=== PATIENT | female | born 1930 | race Caucasian/White ===

== ENCOUNTER → 2018-11-18 19:21 | Outpatient (CLI) | payer MEDICARE | END | disposition home or self-care (01) | LOC: D.MAMMO 11-09 10:30 | DX: N64.4 Mastodynia (principal) ==

== ENCOUNTER → 2019-05-14 08:38 | Outpatient (CLI) | payer MEDICARE, OTHER | END | disposition home or self-care (01) | LOC: D.US 08:38 | PROVIDERS: ATTEND Family Medicine | DX: N64.4 Mastodynia (principal) ==

== ENCOUNTER 2019-07-26 22:43 | Inpatient (IN) | payer MEDICARE, OTHER ==
[~2019-07-26] VITALS: Ht 162.6 cm; Wt 57.2 kg
[2019-07-26] MEDS ORDERED: SYNTHROID25 MCG PO (22:51)
[2019-07-26] MEDS ORDERED: ASPIRIN EC81 M1 PO (22:51)
[2019-07-26] MEDS ORDERED: MERIBIN5 MG PO (22:52)
[2019-07-26] MEDS ORDERED: AVIDOXY100 MG PO (22:52)
[2019-07-26] MEDS ORDERED: FUROSEMIDE20 MG PO (22:53)
[2019-07-26] MEDS ORDERED: LIPITOR20 MG PO (22:53)
[2019-07-26] MEDS ORDERED: LEVAQUIN750 MG PO (22:53)
[2019-07-26] MEDS ORDERED: SEROQUEL25 MG PO (22:54)
[2019-07-26] MEDS ORDERED: DONEPEZIL HCL5 MG PO (22:54)
[2019-07-26] MEDS ORDERED: ALENDRONAT70 MG/75 M PO (22:55)
--- NOTE | 2019-07-26 23:50 | NUR ---
ASSISTED PT WITH AMBULATING TO RESTROOM. URINE SENT TO LAB.
[2019-07-26 23:58] LABS: ALBUMIN 2.6 g/dL (3.4-5.0); ALKALINE PHOSPHATASE 114 U/L (46-116); ALT (SGPT) 32 U/L (10-68); AMYLASE - SERUM 23 U/L (25-115); BILIRUBIN - TOTAL 0.97 mg/dL (0.2-1.3); CALC OSMOLALITY 273 mosm/kg (275-300); CALCIUM 8.8 mg/dL (8.5-10.1); CHLORIDE - SERUM 97 mmol/L (98-107); CREATININE - SERUM 2.1 mg/dL (0.6-1.3); GLUCOSE 147 mg/dL (74-106); LIPASE 104 U/L (73-393); POTASSIUM - SERUM 4.2 mmol/L (3.5-5.1); PROTEIN - SERUM 6.5 g/dL (6.4-8.2); SODIUM 131 mmol/L (136-145); TROPONIN-I < 0.017 ng/mL (0.000-0.060); UREA NITROGEN 35 mg/dL (7-18); eGFR NON AFRICAN AMERICAN 23 mL/min (90-120)
[2019-07-27] VITALS (7 sets, daily range): BP systolic 105–138; BP diastolic 48–62; Ht 162.6 cm; Wt 57.2 kg
[2019-07-27 00:15] LABS: BASOPHILS 0.2 % (0-2); EOSINOPHILS 0.3 % (0-7); HEMATOCRIT 28.8 % (36.0-48.0); HEMOGLOBIN 10.2 g/dL (12-16); IMMATURE GRANULOCYTES 0.2 % (0-5); LYMPHOCYTES 5.3 % (15-50); MCH 33.3 pg (26.0-34.0); MCHC 35.4 g/dL (31.0-37.0); MCV 94.1 fL (80.0-100.0); MEAN PLATELET VOLUME 10.3 fL (7.4-10.4); MONOCYTES 9.5 % (2-11); NEUTROPHILS 84.5 % (40-80); PLATELET COUNT 153 10x3/uL (130-400); RBC 3.06 10x6/uL (4.00-5.40); WBC 10.1 10x3/uL (4.8-10.8)
[2019-07-27 00:24] LABS: APPEARANCE HAZY (CLEAR); BILIRUBIN NEGATIVE (NEGATIVE); COLOR YELLOW (YELLOW); GLUCOSE NEGATIVE (NEGATIVE); KETONE NEGATIVE (NEGATIVE); NITRITE NEGATIVE (NEGATIVE); PROTEIN 1+ mg/dL (NEGATIVE); UROBILINOGEN NORMAL (NORMAL)
[2019-07-27 00:25] LABS: BACTERIA MODERATE /hpf (NONE SEEN); EPITHELIAL CELLS 0-5 /hpf (0-5)
--- NOTE | 2019-07-27 01:20 | NUR ---
PT AMBULATED TO [facility] AT SIDE.
--- NOTE | 2019-07-27 02:39 | NUR ---
REC'D TO ROOM 2229 FROM ER DEPT PER W/C AN 88 Y/O W/FE PER SERVICES DR. ASHLEY HER PCP IS DR. DIAZ. W/DX UTI DEMENTIA/NAUSEA. IV PATENT LEFT ARM OF NS AT 70CC'S/HR. ALLERGY=PCN/CODIENE/PROMETHAZINE/TIZANIDE/ALENDRONTE. ALERT ORIENTED X3. LEEANNE MAT WAS PLACED ON BED BUT PATIENT RATES #2 ON FALL SCALE. WILL KEEP ON BED IF NEEDED.
--- NOTE | 2019-07-27 05:02 | NUR ---
PATIENT AWAKE WALKED OUT INTO HALLWAY DID NOT PUT CALL LIGHT ON. PATIENT HAS GONE INTO BR AND VOIDED. ASSISTED BACK TO BED PT SLIGHTLY CONFUSED WITH IV FLUIDS THINKS BLOOD IS BEING DRAWN OUT. REORIENTED HER TO SURROUNDINGS AND EQUIPMENT. RE ACTIVATED LEEANNE MAT. SR UP X2 PATIENT HAS BEEN PRESSING CALL BUTTON ON SIDE RAILS THAT DOES NOT WORK RE ORIENTED PT TO CALL BUTTON.
--- NOTE | 2019-07-27 05:39 | NUR ---
PATIENT STILLL UPSET WANTING IV OUT. SEVERAL ATTEMPTS MADE TO EXPLAIN THE REASON FOR THE IV.
[2019-07-27 11:49] LABS: BASOPHILS 0.1 % (0-2); EOSINOPHILS 0.8 % (0-7); HEMATOCRIT 28.2 % (36.0-48.0); HEMOGLOBIN 9.8 g/dL (12-16); IMMATURE GRANULOCYTES 0.3 % (0-5); LYMPHOCYTES 4.2 % (15-50); MCH 33.3 pg (26.0-34.0); MCHC 34.8 g/dL (31.0-37.0); MCV 95.9 fL (80.0-100.0); MEAN PLATELET VOLUME 9.9 fL (7.4-10.4); NEUTROPHILS 84.6 % (40-80); PLATELET COUNT 160 10x3/uL (130-400); RBC 2.94 10x6/uL (4.00-5.40); RDW 14.2 % (11.5-14.5); WBC 8.7 10x3/uL (4.8-10.8)
--- NOTE | 2019-07-27 17:22 | NUR ---
I have reviewed this patient and I concur with the Shift Assessment completed by the Licensed Practical Nurse today this shift.
--- NOTE | 2019-07-27 20:00 | NUR ---
UP CONFUSED AMBULATING IN HALLWAY, FAMILY MEMBERS PRESENT, PT REDIRECTED BACK TO ROOM, UNABLE TO KEEP IN ROOM WANDERS BACK TO CAI AND INTO OTHER PT ROOMS, REDIRECTED BACK TO ROOM, HAS LEEANNE MAT IN CHAIR AND ON BED, WEARING SHOES, REFUSED TO WEAR YELLOW GOWN, IV IS HEPLOCKED, NO ACUTE DISTRESS NOTED WILL MONITOR
[2019-07-28 01:11] VITALS: BP 124/55
--- NOTE | 2019-07-28 01:30 | NUR ---
HEATHER CONFUSED AND DISORIENTIATED, WONDERING OUT IN HALLWAY INSISTING ON GOING OUT TO [facility] TO GET THAT KID, DIFFICULT TO REDIRECT BACK TO ROOM, YELLING AT NURSEJanelleN NOTIFIED OF ABOVE ORDERS RECIEVED FOR BENADRYL 50 SLOW IV, ASSISTED PT BACK TO ROOM AND GOT TO LAY DAOWN IN BED BENADRY GIVEN ORDERED, NURSE AND AIDE SAT WITH PT FOR 30 MIN UNTIL FINALLY CLOSED EYES, RESP EVEN AND UNLABORED
[2019-07-28 05:18] VITALS: BP 134/60
[2019-07-28 05:39] LABS: BASOPHILS 0.2 % (0-2); EOSINOPHILS 1.1 % (0-7); HEMATOCRIT 26.5 % (36.0-48.0); HEMOGLOBIN 9.2 g/dL (12-16); IMMATURE GRANULOCYTES 0.6 % (0-5); LYMPHOCYTES 10.5 % (15-50); MCH 33.1 pg (26.0-34.0); MCHC 34.7 g/dL (31.0-37.0); MCV 95.3 fL (80.0-100.0); MEAN PLATELET VOLUME 10.2 fL (7.4-10.4); MONOCYTES 10.6 % (2-11); PLATELET COUNT 185 10x3/uL (130-400); RBC 2.78 10x6/uL (4.00-5.40); RDW 14.1 % (11.5-14.5)
[2019-07-28 05:43] LABS: WBC 6.3 10x3/uL (4.8-10.8)
[2019-07-28 06:11] LABS: ALBUMIN 2.6 g/dL (3.4-5.0); BILIRUBIN - TOTAL 0.42 mg/dL (0.2-1.3); CARBON DIOXIDE 23.4 mmol/L (21.0-32.0); CREATININE - SERUM 2.3 mg/dL (0.6-1.3); POTASSIUM - SERUM 4.4 mmol/L (3.5-5.1); PROTEIN - SERUM 5.7 g/dL (6.4-8.2)
--- NOTE | 2019-07-28 07:20 | NUR ---
REC'D IN BED AWAKE AND ALERT TO SELF ONLY. RESP EVEN AND UNLABORED WITH NO DISTRESS NOTED. CAN EXPRESS SOME NEEDS AND WANTS. PT REMAIN CONFUSED AND COME OUT OF ROOM AND WANDERS AROUND. NO C/O NOTED OR VOICED. ASSESSMENT COMPLETED. C/L IN REACH AT BEDSIDE.
[2019-07-28 09:22] VITALS: BP 120/49
--- NOTE | 2019-07-28 12:00 | NUR ---
PT HAS WONDER OUT OF ROOM SEVERAL TIME ON THIS MORNING WITH REDIRECTION GIVEN WITH MIN SUCCESS. C/L IN REACH AT BEDSIDE.
[2019-07-28] MEDS ORDERED: LEVOFLOXACIN500 MG PO (12:21)
[2019-07-28] MEDS ORDERED: FUROSEMIDE20 MG PO ×2 (12:21→14:06)
--- NOTE | 2019-07-28 12:39 | MORECARE ---
CASE MANAGEMENT DISCHARGE SUMMARY PATIENT: CAPO YOUNG UNIT: [id number] ADM DATE: 07/27/19 AGE: 88 : [birth year] SEX: F ROOM/BED: D.2229 AUTHOR: ALIYA DUBOIS PHYSICIAN: REFERRING PHYSICIAN: SHOAIB ASHLEY MD DATE OF SERVICE: 07/28/19 Discharge Plan Patient Name: CAPO YOUNG Facility: [facility]:[place] : 1930 Planned Disposition: Assisted Living Anticipated Discharge Date: 07/28/19 Discharge Date: Expected LOS: 1 Initial Reviewer: [email or web address] Initial Review Date: 07/28/2019 Generated: 07/28/19 1:39 pm Patient Name: CAPO YOUNG Page 43111 at 1239 All edits/amendments must be made on the electronic document DICTATION DATE: 07/28/19 1239 MAGAZINE WRITER: MAMADOU 07/28/19 1239 RPT#: [id number] DC DATE: STATUS: ADM IN [facility] [address] [place] [address] END OF REPORT
--- NOTE | 2019-07-28 12:47 | MORECARE ---
CASE MANAGEMENT DISCHARGE SUMMARY PATIENT: CAPO YOUNG UNIT: [id number] ADM DATE: 07/27/19 AGE: 88 : [birth year] SEX: F ROOM/BED: D.2229 AUTHOR: SHERLYDOC PHYSICIAN: REFERRING PHYSICIAN: SHOAIB ASHLEY MD DATE OF SERVICE: 07/28/19 Discharge Plan Patient Name: CAPO YOUNG Facility: [facility]:[place] : 1930 Planned Disposition: Assisted Living Anticipated Discharge Date: 07/28/19 Discharge Date: Expected LOS: 1 Initial Reviewer: [email or web address] Initial Review Date: 07/28/2019 Generated: 07/28/19 1:47 pm Comments DCP- Discharge Planning Updated by [email or web address]: Rosemary Lopez on 07/28/19 11:[address] Patient Name: CAPO YOUNG Admission Status: ER Accout number: [id number] Admission Date: 07-27-2019 : 1930 Admission Diagnosis: Attending: SHOAIB ASHLEY Current LOS: 1 Anticipated DC Date: 07-28-2019 Planned Disposition: Assisted Living Primary Insurance: MEDICARE A & B Discharge Planning Comments: CM met with patient and her son to discuss discharge planning/needs. I have received a discharge order for today. She is sitting up in the chair. Son states "we are ready to take her back home." She lives at [facility] in [place]. States she is independent with all her care. States they provide her meals. States "I go dancing every ". CM discussed availability of home health and DME needs, decline needs. I called and spoke to Arti, senior payroll administrator at [place], and she states ok to return today and to fax clinical to [phone]. I faxed the clinical requested. CM will continue to follow and assist with discharge planning/needs. Cmm Programmer: Rosemary Lopez DCPIA - Discharge Planning Initial Assessment Updated by [email or web address]: Rosemary Lopez on 07/28/19 12:40 pm * Is the patient Alert and Oriented? Yes * How many steps to enter\\exit or inside your home? 0/0 * PCP Dr. Stanley * Pharmacy [facility] in [place] * Preadmission Environment Assisted Living * Facility Name [facility] - [phone] * ADLs Independent * Equipment Other * Other Equipment Pull cord in the bathroom * List name and contact numbers for known caregivers / representatives who currently or will assist patient after discharge: Meir baxter - [phone] * Verbal permission to speak to the caregivers and representatives has been obtained from the patient. Yes * Community resources currently utilized Assisted Living * Please name any agencies selected above. [facility] * Additional services required to return to the preadmission environment? No * Can the patient safely return to the preadmission environment? Yes * Has this patient been hospitalized within the prior 30 days at any hospital? No External Providers External Provider: [facility] Next Contact Date: Service Request Date: Service Type: Resolution: Reviewer: Comments: Last DP export: 07/28/19 11:39 a Patient Name: CAPO YOUNG Page [phone] at 1247 All edits/amendments must be made on the electronic document DICTATION DATE: 07/28/19 1246 COIL BINDER: MAMADOU 07/28/19 1246 RPT#: [id number] DC DATE: STATUS: ADM IN [facility] [address] [place] [address] END OF REPORT
--- NOTE | 2019-07-28 14:07 | NUR ---
PT DC BACK TO [facility] AT THIS TIME IN STABLE CONDITION. IV DC WITH TIP INTACT. SON AT BEDSIDE AND SIGN ALL PAPER WORK.
[2019-07-28 14:12] VITALS: BP 123/77
--- NOTE | 2019-07-28 14:21 | NUR ---
REPORT WAS CALLED AND GIVEN TO LINDA CHARGE NURSE AT [facility].
--- NOTE | 2019-07-29 16:24 | MORECARE ---
CASE MANAGEMENT DISCHARGE SUMMARY PATIENT: CAPO YOUNG UNIT: [id number] ADM DATE: 07/27/19 AGE: 88 : [birth year] SEX: F ROOM/BED: D.2229 AUTHOR: ALIYA DUBOIS PHYSICIAN: REFERRING PHYSICIAN: SHOAIB ASHLEY MD DATE OF SERVICE: 07/29/19 Discharge Plan Patient Name: CAPO YOUNG Facility: [facility]:[place] : 1930 Planned Disposition: Assisted Living Anticipated Discharge Date: 07/28/19 Discharge Date: 07/28/2019 Expected LOS: 1 Initial Reviewer: [email or web address] Initial Review Date: 07/28/2019 Generated: 07/29/19 5:24 pm DCP- Discharge Planning Updated by [email or web address]: Rosemary Lopez on 07/28/19 11:[address] Patient Name: CAPO YOUNG Admission Status: ER Accout number: [id number] Admission Date: 07-27-2019 : 1930 Admission Diagnosis: Attending: SHOAIB ASHLEY Current LOS: 1 Anticipated DC Date: 07-28-2019 Planned Disposition: Assisted Living Primary Insurance: MEDICARE A & B Discharge Planning Comments: CM met with patient and her son to discuss discharge planning/needs. I have received a discharge order for today. She is sitting up in the chair. Son states "we are ready to take her back home." She lives at [facility] in [place]. States she is independent with all her care. States they provide her meals. States "I go dancing every ". CM discussed availability of home health and DME needs, decline needs. I called and spoke to Arti, social insurance administrator at [place], and she states ok to return today and to fax clinical to [phone]. I faxed the clinical requested. CM will continue to follow and assist with discharge planning/needs. Client Associate: Rosemary Lopez DCPIA - Discharge Planning Initial Assessment Updated by [email or web address]: Rosemary Lopez on 07/28/19 12:40 pm * Is the patient Alert and Oriented? Yes * How many steps to enter\\exit or inside your home? 0/0 * PCP Dr. Stanley * Pharmacy [facility] in [place] * Preadmission Environment Assisted Living * Facility Name [facility] - [phone] * ADLs Independent * Equipment Other * Other Equipment Pull cord in the bathroom * List name and contact numbers for known caregivers / representatives who currently or will assist patient after discharge: Meir baxter - [phone] * Verbal permission to speak to the caregivers and representatives has been obtained from the patient. Yes * Community resources currently utilized Assisted Living * Please name any agencies selected above. [facility] * Additional services required to return to the preadmission environment? No * Can the patient safely return to the preadmission environment? Yes * Has this patient been hospitalized within the prior 30 days at any hospital? No Last DP export: 07/28/19 11:47 a Patient Name: CAPO YOUNG Page 64748 at 1624 All edits/amendments must be made on the electronic document DICTATION DATE: 07/29/191622 TRAFFIC SERGEANT: MAMADOU 07/29/191622 RPT#: [id number] DC DATE:07/28/19 STATUS: DIS IN [facility] [address] [place] [address] END OF REPORT
== END 2019-07-28 14:22 | disposition home or self-care (01) | DRG 689 ==
LOC: D.ER 22:43 → D.MS 07-27 01:24
PROVIDERS: Family Medicine; ADMIT Internal Medicine Nephrology; ATTEND Internal Medicine Nephrology
DX: N39.0 Urinary tract infection, site not specified (principal); G92 Toxic encephalopathy; E43 Unspecified severe protein-calorie malnutrition; E87.1 Hypo-osmolality and hyponatremia; N17.9 Acute kidney failure, unspecified; E86.0 Dehydration; Z68.21 Body mass index [BMI] 21.0-21.9, adult; E88.09 Other disorders of plasma-protein metabolism, not elsewhere classified; D64.9 Anemia, unspecified; E03.9 Hypothyroidism, unspecified; E78.5 Hyperlipidemia, unspecified; F03.90 Unspecified dementia, unspecified severity, without behavioral disturbance, psychotic disturbance, mood disturbance, and anxiety

== ENCOUNTER → 2019-11-03 08:38 | Outpatient (CLI) | payer MEDICARE, OTHER ==
[2019-07-27 12:34] VITALS: BMI 21.6
[~2019-11-03 08:38] MED LIST: ALENDRONAT70 MG/75 M PO; ASPIRIN EC81 M1 PO; AVIDOXY100 MG PO; DONEPEZIL HCL5 MG PO; FUROSEMIDE20 MG PO; LEVAQUIN750 MG PO; LEVOFLOXACIN500 MG PO; LIPITOR20 MG PO; MERIBIN5 MG PO; MIRALAX17 GM PO; SEROQUEL25 MG PO; SYNTHROID25 MCG PO
== END | disposition home or self-care (01) ==
LOC: D.RAD 08:38
PROVIDERS: ATTEND Family Medicine
DX: K59.00 Constipation, unspecified (principal); R10.9 Unspecified abdominal pain

== ENCOUNTER 2019-11-03 12:22 | Inpatient (IN) | payer MEDICARE, OTHER ==
[~2019-11-03] VITALS: Ht 162.6 cm; Wt 71.2 kg
[~2019-11-03 12:22] MED LIST changes: -MIRALAX17 GM PO
[2019-11-03 13:36] LABS: APPEARANCE CLEAR (CLEAR); BILIRUBIN NEGATIVE (NEGATIVE); COLOR YELLOW (YELLOW); GLUCOSE NEGATIVE (NEGATIVE); KETONE NEGATIVE (NEGATIVE); NITRITE NEGATIVE (NEGATIVE); PROTEIN TRACE mg/dL (NEGATIVE); SPECIFIC GRAVITY 1.015 (1.005-1.020)
[2019-11-03 13:37] LABS: BACTERIA FEW /hpf (NEGATIVE); EPITHELIAL CELLS 0-5 /hpf (0-5); WHITE CELLS - URINE OCC /hpf (NEGATIVE)
[2019-11-03 13:48] LABS: BASOPHILS 0.2 % (0-2); HEMOGLOBIN 11.3 g/dL (12-16); IMMATURE GRANULOCYTES 0.3 % (0-5); LYMPHOCYTES 8.6 % (15-50); MCH 32.9 pg (26.0-34.0); MCHC 33.2 g/dL (31.0-37.0); MCV 99.1 fL (80.0-100.0); MEAN PLATELET VOLUME 9.6 fL (7.4-10.4); MONOCYTES 6.1 % (2-11); NEUTROPHILS 83.8 % (40-80); RBC 3.43 10x6/uL (4.00-5.40); RDW 14.9 % (11.5-14.5); WBC 11.4 10x3/uL (4.8-10.8)
[2019-11-03 13:58] LABS: ANION GAP 18.6 mmol/L (8-16); CALCIUM 9.3 mg/dL (8.5-10.1); CARBON DIOXIDE 20.1 mmol/L (21.0-32.0); CREATININE - SERUM 1.5 mg/dL (0.6-1.3); POTASSIUM - SERUM 3.7 mmol/L (3.5-5.1)
[2019-11-03 14:04] LABS: ALBUMIN 3.7 g/dL (3.4-5.0); BILIRUBIN - TOTAL 0.83 mg/dL (0.2-1.3); PROTEIN - SERUM 7.1 g/dL (6.4-8.2)
[2019-11-03 14:12] LABS: PLATELET COUNT 279 10x3/uL (130-400)
[2019-11-03 14:44] VITALS: BP 141/105
[2019-11-03 16:00] VITALS: BP 119/110
[2019-11-03 16:48] LABS: % SATURATION 44 % (15-55); IRON 110 ug/dl (35-150); TOTAL IRON BIND CAPACITY 246 ug/dl (260-445); UNSAT IRON BIND CAPACITY 136 ug/dl (150-375)
[2019-11-03 17:25] VITALS: BP 171/71; BMI 27.0
--- NOTE | 2019-11-03 17:45 | NUR ---
PATIENT ADMITTED TO ROOM 2223. LUNGS CLEAR BILATERALLY. HEART SOUNDS S1 AND S2 HEARD IN ALL [place]. BOWEL SOUNDS HYPOACTIVE X 4. BUTTOCKS PINK BUT BLANCHABLE. SKIN OTHERWISE INTACT WITHOUT REDNESS. IV PATENT TO RIGHT AC WITHOUT REDNESS. SON AT BS ASSISTED WITH ADMISSION. DENIES NEEDS. BED LOW. FALL PRECAUTIONS IN PLACE AND EDUCATION PROVIDED. CALL BLACK AND PERSONAL ITEMS IN REACH.
[2019-11-03 18:00] VITALS: BP 129/86
[2019-11-03 20:35] VITALS: BP 158/73
[2019-11-04] VITALS (7 sets, daily range): BP systolic 126–145; BP diastolic 50–79; Ht 162.6 cm; Wt 71.2 kg
[2019-11-04 06:11] LABS: BASOPHILS 0.1 % (0-2); EOSINOPHILS 0 % (0-7); HEMATOCRIT 32.5 % (36.0-48.0); HEMOGLOBIN 10.9 g/dL (12-16); IMMATURE GRANULOCYTES 0.3 % (0-5); LYMPHOCYTES 4.3 % (15-50); MCH 33.2 pg (26.0-34.0); MCHC 33.5 g/dL (31.0-37.0); MCV 99.1 fL (80.0-100.0); MEAN PLATELET VOLUME 9.9 fL (7.4-10.4); MONOCYTES 5.5 % (2-11); NEUTROPHILS 89.8 % (40-80); PLATELET COUNT 292 10x3/uL (130-400); RBC 3.28 10x6/uL (4.00-5.40); RDW 15.1 % (11.5-14.5)
[2019-11-04 06:25] LABS: ANION GAP 17.5 mmol/L (8-16); CALCIUM 8.7 mg/dL (8.5-10.1); CARBON DIOXIDE 22.5 mmol/L (21.0-32.0)
[2019-11-04 06:26] LABS: CREATININE - SERUM 2.1 mg/dL (0.6-1.3)
[2019-11-04 06:49] LABS: WBC 17.4 10x3/uL (4.8-10.8)
--- NOTE | 2019-11-04 10:00 | MORECARE ---
CASE MANAGEMENT DISCHARGE SUMMARY PATIENT: CAPO YOUNG UNIT: [id number] ADM DATE: 11/03/19 AGE: 89 : [birth year] SEX: F ROOM/BED: D.2223 AUTHOR: ALIYA DUBOIS PHYSICIAN: REFERRING PHYSICIAN: SHOAIB ASHLEY MD DATE OF SERVICE: 11/04/19 Discharge Plan Patient Name: CAPO YOUNG Facility: [facility]:[place] : 1930 Planned Disposition: Assisted Living Anticipated Discharge Date: Discharge Date: Expected LOS: Initial Reviewer: [email or web address] Initial Review Date: 11/04/2019 Generated: 11/04/19 10:59 am Coverage Notice Reviewer: [email or web address] Kirti Lee Notice Issued Date-Time: 11/03/2019 15:40 Notice Type: Medicare Outpatient Observation Notice Notice Delivered To: Family Member Relationship to Patient: Son Software Applications Designer Name: Meir Young Delivery Method: HAND - Hand Delivered Veronica Days: Prior Verbal Notification: Recipient Understood Notice: Yes Recipient Signature: Yes Med Rec Note Co-signed by Attending: Coverage Notice Comment: RIDER delivered to and signed by patient's son. Original given to son and one placed on chart. Patient Name: CAPO YOUNG Page 57811 at 1000 All edits/amendments must be made on the electronic document DICTATION DATE: 11/04/19958 DIGITAL MEDIA REPRESENTATIVE: MAMADOU 11/04/19958 RPT#: [id number] DC DATE: STATUS: ADM IN [facility] [address] [place] [address] END OF REPORT
--- NOTE | 2019-11-04 10:08 | MORECARE ---
CASE MANAGEMENT DISCHARGE SUMMARY PATIENT: CAPO YOUNG UNIT: [id number] ADM DATE: 11/03/19 AGE: 89 : [birth year] SEX: F ROOM/BED: D.2223 AUTHOR: SHERLY,DOC PHYSICIAN: REFERRING PHYSICIAN: SHOAIB ASHLEY MD DATE OF SERVICE: 11/04/19 Discharge Plan Patient Name: CAPO YOUNG Facility: [facility]:[place] : 1930 Planned Disposition: Assisted Living Anticipated Discharge Date: Discharge Date: Expected LOS: Initial Reviewer: [email or web address] Initial Review Date: 11/04/2019 Generated: 11/04/19 11:07 am Comments DCP- Discharge Planning Updated by [email or web address]: Rosemary Lopez on 11/04/19 9:[address] Patient Name: CAPO YOUNG Admission Status: ER Accout number: [id number] Admission Date: 11-03-2019 : 1930 Admission Diagnosis: Attending: SHOAIB ASHLEY Current LOS: 1 Anticipated DC Date: Planned Disposition: Assisted Living Primary Insurance: MEDICARE A & B Discharge Planning Comments: CM met with patient to complete initial dc planning assessment per son's request. CM educated patient on the CM role and verbal consent given by patient to complete assessment. Patient lives at [facility] in [place]. At discharge patient plans to return and feels this is a safe discharge. CM discussed availability of home health, rehab services, and medical equipment. Patient denied known discharge needs at this time. Son states he will take her home on discharge. CM will continue to follow and will assist as needed with dc plans/needs. Medical Surgical Tech: Rosemary Lopez DCPIA - Discharge Planning Initial Assessment Updated by [email or web address]: Rosemary Lopez on 11/04/19 10:00 am * Is the patient Alert and Oriented? Yes * How many steps to enter\exit or inside your home? 0/0 * PCP Lizeth * Pharmacy [facility] in [place] * Preadmission Environment Assisted Living * Facility Name [facility] * ADLs Partial Dependent * Partial ADLs (Assistance needed) Bathing Dressing Medication Management * Equipment None * List name and contact numbers for known caregivers / representatives who currently or will assist patient after discharge: Meir baxter - [phone] * Verbal permission to speak to the caregivers and representatives has been obtained from the patient. Yes * Community resources currently utilized None * Additional services required to return to the preadmission environment? No * Can the patient safely return to the preadmission environment? Yes * Has this patient been hospitalized within the prior 30 days at any hospital? No Coverage Notice Reviewer: [email or web address] Kirti Lee Notice Issued Date-Time: 11/03/2019 15:40 Notice Type: Medicare Outpatient Observation Notice Notice Delivered To: Family Member Relationship to Patient: Son Rotary Adjuster Name: Meir Young Delivery Method: HAND - Hand Delivered Veronica Days: Prior Verbal Notification: Recipient Understood Notice: Yes Recipient Signature: Yes Med Rec Note Co-signed by Attending: Coverage Notice Comment: RIDER delivered to and signed by patient's son. Original given to son and one placed on chart. Last DP export: 11/04/19 9:00 Patient Name: CAPO YOUNG Page [phone] at 1008 All edits/amendments must be made on the electronic document DICTATION DATE: 11/04/19 1007 BUTCHER FISH: MAMADOU 11/04/19 1007 RPT#: [id number] DC DATE: STATUS: ADM IN [facility] [address] [place] [address] END OF REPORT
--- NOTE | 2019-11-04 10:51 | NUR ---
PT RESTING IN BED. NO SIGNS OF DISTRESS. IV TO RIGHT AC PATENT NO REDNESS OR TEDNERNESS. ABDOMEN DISTENTED. ALL FALL PRECAUTIONS IN PLACE. DENIES ANY FURTHER NEED AT THIS TIME. CALL LIGHT IN REACH. BED LOW POSITION.
--- NOTE | 2019-11-04 16:03 | NUR ---
I have reviewed this patient and I concur with the Shift Assessment completed by the Licensed Practical Nurse today this shift.
--- NOTE | 2019-11-04 19:30 | NUR ---
PATIENT LYING IN BED, SON AT BEDSIDE. IV TO R FA, NO PAIN, REDNESS OR SWELLING. ENCOURAGED PATIENT TO CALL WITH ANY NEEDS. FALL PRECAUTIONS IN PLACE. BED RAILS X2. CALL LIGHT AND BEDSIDE TABLE WITHIN REACH.
[2019-11-05 05:54] VITALS: BP 136/68
--- NOTE | 2019-11-05 08:00 | NUR ---
ASSESSMENT PER FLOW SHEET. PT IS WITHOUT DISTRESS.SHE IS MAD ABOUT BEING HERE AND DOES NOT LIKE HER IV.SHE IS SITTING UP AT BEDSIDE.FALL ALARM X2. DOOR OPEN.MONITOR
[2019-11-05 08:28] LABS: ANION GAP 12.2 mmol/L (8-16); CALCIUM 8.3 mg/dL (8.5-10.1); CARBON DIOXIDE 25.5 mmol/L (21.0-32.0); CREATININE - SERUM 2.3 mg/dL (0.6-1.3); POTASSIUM - SERUM 3.7 mmol/L (3.5-5.1)
[2019-11-05 08:36] LABS: BASOPHILS 0.3 % (0-2); HEMATOCRIT 29.7 % (36.0-48.0); HEMOGLOBIN 9.7 g/dL (12-16); IMMATURE GRANULOCYTES 0.5 % (0-5); LYMPHOCYTES 15.9 % (15-50); MCH 32.1 pg (26.0-34.0); MCHC 32.7 g/dL (31.0-37.0); MCV 98.3 fL (80.0-100.0); MEAN PLATELET VOLUME 9.7 fL (7.4-10.4); MONOCYTES 6.7 % (2-11); NEUTROPHILS 73.6 % (40-80); PLATELET COUNT 266 10x3/uL (130-400); RBC 3.02 10x6/uL (4.00-5.40); RDW 15.2 % (11.5-14.5)
[2019-11-05 08:39] LABS: WBC 12.3 10x3/uL (4.8-10.8)
[2019-11-05 09:47] VITALS: BP 125/63
[2019-11-05 13:36] VITALS: BP 118/63
--- NOTE | 2019-11-05 14:00 | NUR ---
INCONTINENT OF URINE. INSTRUTED PATIENT WE NEED URINE FOR LAB.SHE REFUSES IN AND OUT CATH.
[2019-11-05 17:54] VITALS: BP 123/67
[2019-11-05 20:00] VITALS: BP 127/59
--- NOTE | 2019-11-06 02:04 | NUR ---
PT RESTING IN BED. EYES CLOSED. NO SIGNS OF DISTRESS. BREATHING EVEN AND UNLABORED. IV SITE RT FA DRESSING CLEAN DRY AND INTACT. NO SIGNS OF INFECTION. BOWEL SOUNDS HYPOACTIVE. SKIN CLEAN DRY AND INTACT. SOME LOWER LEG SWELLING PRESENT. WILL CONTINUE PLAN OF CARE. CALL LIGHT IN REACH. BED LOWERED AND LOCKED. BED RAILS UPX2. BED ALARM AND LEEANNE ALARM.
--- NOTE | 2019-11-06 03:00 | NUR ---
I have reviewed this patient and I concur with the Shift Assessment completed by the Licensed Practical Nurse today this shift.
[2019-11-06 04:00] VITALS: BP 123/49
[2019-11-06 06:41] LABS: BASOPHILS 0.3 % (0-2); EOSINOPHILS 8.4 % (0-7); HEMATOCRIT 27.5 % (36.0-48.0); HEMOGLOBIN 9.1 g/dL (12-16); IMMATURE GRANULOCYTES 0.5 % (0-5); LYMPHOCYTES 22.8 % (15-50); MCH 32.4 pg (26.0-34.0); MCHC 33.1 g/dL (31.0-37.0); MCV 97.9 fL (80.0-100.0); MEAN PLATELET VOLUME 9.1 fL (7.4-10.4); MONOCYTES 9.5 % (2-11); NEUTROPHILS 58.5 % (40-80); PLATELET COUNT 231 10x3/uL (130-400); RBC 2.81 10x6/uL (4.00-5.40); RDW 14.9 % (11.5-14.5)
[2019-11-06 06:42] LABS: WBC 5.9 10x3/uL (4.8-10.8)
[2019-11-06 06:57] LABS: ANION GAP 9.7 mmol/L (8-16); CALCIUM 7.9 mg/dL (8.5-10.1); CARBON DIOXIDE 28.5 mmol/L (21.0-32.0); CREATININE - SERUM 1.9 mg/dL (0.6-1.3); POTASSIUM - SERUM 3.2 mmol/L (3.5-5.1)
[2019-11-06 08:21] VITALS: BP 141/54
[2019-11-06 12:47] VITALS: BP 128/68
[2019-11-06] MEDS ORDERED: MIRALAX17 GM PO (13:28)
--- NOTE | 2019-11-06 13:57 | MORECARE ---
CASE MANAGEMENT DISCHARGE SUMMARY PATIENT: CAPO YOUNG UNIT: [id number] ADM DATE: 11/04/19 AGE: 89 : [birth year] SEX: F ROOM/BED: D.2223 AUTHOR: SHERLY,DOC PHYSICIAN: REFERRING PHYSICIAN: SHOAIB ASHLEY MD DATE OF SERVICE: 11/06/19 Discharge Plan Patient Name: CAPO YOUNG Facility: [facility]:[place] : 1930 Planned Disposition: Assisted Living Anticipated Discharge Date: Discharge Date: Expected LOS: Initial Reviewer: [email or web address] Initial Review Date: 11/04/2019 Generated: 11/06/19 2:57 pm Comments DCP- Discharge Planning Updated by [email or web address]: Joan Gerard on 11/06/19 12:[address] CM received discharge orders on patient. CM contacted [facility] to let them be aware of discharge today. Son plans on transporting patient back. No discharge needs noted. CM will continue to follow and assist as needed with discharge planning / needs. DCP- Discharge Planning Updated by [id number]: Rosemary Lopez on 11/04/19 9:[address] Patient Name: CAPO YOUNG Admission Status: ER Accout number: [id number] Admission Date: 11-03-2019 : 1930 Admission Diagnosis: Attending: SHOAIB ASHLEY Current LOS: 1 Anticipated DC Date: Planned Disposition: Assisted Living Primary Insurance: MEDICARE A & B Discharge Planning Comments: CM met with patient to complete initial dc planning assessment per son's request. CM educated patient on the CM role and verbal consent given by patient to complete assessment. Patient lives at [facility] in [place]. At discharge patient plans to return and feels this is a safe discharge. CM discussed availability of home health, rehab services, and medical equipment. Patient denied known discharge needs at this time. Son states he will take her home on discharge. CM will continue to follow and will assist as needed with dc plans/needs. Infertility Medical Assistant: Rosemary Lopez DCPIA - Discharge Planning Initial Assessment Updated by [id number]: Rosemary Lopez on 11/04/19 10:00 am * Is the patient Alert and Oriented? Yes * How many steps to enter\exit or inside your home? 0/0 * PCP Lizeth * Pharmacy [facility] in [place] * Preadmission Environment Assisted Living * Facility Name [facility] * ADLs Partial Dependent * Partial ADLs (Assistance needed) Bathing Dressing Medication Management * Equipment None * List name and contact numbers for known caregivers / representatives who currently or will assist patient after discharge: Meir baxter - [phone] * Verbal permission to speak to the caregivers and representatives has been obtained from the patient. Yes * Community resources currently utilized None * Additional services required to return to the preadmission environment? No * Can the patient safely return to the preadmission environment? Yes * Has this patient been hospitalized within the prior 30 days at any hospital? No Coverage Notice Reviewer: [email or web address] Kirti Lee Notice Issued Date-Time: 11/03/2019 15:40 Notice Type: Medicare Outpatient Observation Notice Notice Delivered To: Family Member Relationship to Patient: Son Airport Screener Name: Meir Young Delivery Method: HAND - Hand Delivered Veronica Days: Prior Verbal Notification: Recipient Understood Notice: Yes Recipient Signature: Yes Med Rec Note Co-signed by Attending: Coverage Notice Comment: RIDER delivered to and signed by patient's son. Original given to son and one placed on chart. Last DP export: 11/04/19 9:08 Patient Name: CAPO YOUNG Page [phone] at 1357 All edits/amendments must be made on the electronic document DICTATION DATE: 11/06/19 1351 SUPERINTENDENT MARINE: MAMADOU 11/06/19 1355 RPT#: [id number] DC DATE: STATUS: ADM IN [facility] [address] [place] [address] END OF REPORT
--- NOTE | 2019-11-06 14:08 | NUR ---
CALL TO [facility]. REPORT TO NAEEM GUTIERREZ LPN
--- NOTE | 2019-11-06 14:10 | NUR ---
IV DCD WITH CATH TIP INATCCT. DISCHARGE INSTRUCTIONS WITH PT AND FAMILY,STATES UNDERSTANDING.
--- NOTE | 2019-11-06 14:28 | NUR ---
LEFT UNIT VIA WHEELCHAIR WITH FAMILY FOR TRANSPORT TO [facility]
--- NOTE | 2019-11-09 11:30 | MORECARE ---
CASE MANAGEMENT DISCHARGE SUMMARY PATIENT: CAPO YOUNG UNIT: [id number] ADM DATE: 11/04/19 AGE: 89 : [birth year] SEX: F ROOM/BED: D.2223 AUTHOR: SHERLY,DOC PHYSICIAN: REFERRING PHYSICIAN: SHOAIB ASHLEY MD DATE OF SERVICE: 11/09/19 Discharge Plan Patient Name: CAPO YOUNG Facility: [facility]:[place] : 1930 Planned Disposition: Assisted Living Anticipated Discharge Date: Discharge Date: 11/06/2019 Expected LOS: Initial Reviewer: [email or web address] Initial Review Date: 11/04/2019 Generated: 11/09/19 12:30 pm Comments DCP- Discharge Planning Updated by [email or web address]: Joan Gerard on 11/06/19 12:[address] CM received discharge orders on patient. CM contacted [facility] to let them be aware of discharge today. Son plans on transporting patient back. No discharge needs noted. CM will continue to follow and assist as needed with discharge planning / needs. DCP- Discharge Planning Updated by [email or web address]: Rosemary Lopez on 11/04/19 9:[address] Patient Name: CAPO YOUNG Admission Status: ER Accout number: [id number] Admission Date: 11-03-2019 : 1930 Admission Diagnosis: Attending: SHOAIB ASHLEY Current LOS: 1 Anticipated DC Date: Planned Disposition: Assisted Living Primary Insurance: MEDICARE A & B Discharge Planning Comments: CM met with patient to complete initial dc planning assessment per son's request. CM educated patient on the CM role and verbal consent given by patient to complete assessment. Patient lives at [facility] in [place]. At discharge patient plans to return and feels this is a safe discharge. CM discussed availability of home health, rehab services, and medical equipment. Patient denied known discharge needs at this time. Son states he will take her home on discharge. CM will continue to follow and will assist as needed with dc plans/needs. High Density Press Laborer: Rosemary Lopez DCPIA - Discharge Planning Initial Assessment Updated by [email or web address]: Rosemary Lopez on 11/04/19 10:00 am * Is the patient Alert and Oriented? Yes * How many steps to enter\exit or inside your home? 0/0 * PCP Lizeth * Pharmacy [facility] in [place] * Preadmission Environment Assisted Living * Facility Name [facility] * ADLs Partial Dependent * Partial ADLs (Assistance needed) Bathing Dressing Medication Management * Equipment None * List name and contact numbers for known caregivers / representatives who currently or will assist patient after discharge: Meir baxter - [phone] * Verbal permission to speak to the caregivers and representatives has been obtained from the patient. Yes * Community resources currently utilized None * Additional services required to return to the preadmission environment? No * Can the patient safely return to the preadmission environment? Yes * Has this patient been hospitalized within the prior 30 days at any hospital? No Coverage Notice Reviewer: [email or web address] Kirti Lee Notice Issued Date-Time: 11/03/2019 15:40 Notice Type: Medicare Outpatient Observation Notice Notice Delivered To: Family Member Relationship to Patient: Son Lead Programmer Name: Meir Young Delivery Method: HAND - Hand Delivered Veronica Days: Prior Verbal Notification: Recipient Understood Notice: Yes Recipient Signature: Yes Med Rec Note Co-signed by Attending: Coverage Notice Comment: RIDER delivered to and signed by patient's son. Original given to son and one placed on chart. Last DP export: 11/06/19 12:57 Patient Name: CAPO YOUNG Page [id number] at 1130 All edits/amendments must be made on the electronic document DICTATION DATE: 11/09/19 113 PLANTING MATERIAL CARRIER: MAMADOU 11/09/19 1130 RPT#: [id number] DC DATE:11/06/19 STATUS: DIS IN [facility] [address] [place] [address] END OF REPORT
== END 2019-11-06 14:28 | DRG 812 ==
LOC: D.ER 12:22 → D.MS 15:28 → OBSVTIME 15:51 → D.MS 11-04 15:41
PROVIDERS: Emergency Medicine; ADMIT Internal Medicine Nephrology; ATTEND Internal Medicine Nephrology
DX: D50.9 Iron deficiency anemia, unspecified (principal); N17.9 Acute kidney failure, unspecified; F03.91 Unspecified dementia, unspecified severity, with behavioral disturbance; K56.41 Fecal impaction; E78.5 Hyperlipidemia, unspecified; E03.9 Hypothyroidism, unspecified; F03.90 Unspecified dementia, unspecified severity, without behavioral disturbance, psychotic disturbance, mood disturbance, and anxiety; N26.1 Atrophy of kidney (terminal); K76.89 Other specified diseases of liver; D72.829 Elevated white blood cell count, unspecified